=== PATIENT | female | born 1970 | race Caucasian/White ===

== ENCOUNTER → 2017-03-13 | Outpatient (CLI) | payer OTHER ==
[2014-10-20 14:53] VITALS: BP 130/79
[~2017-03-13] MED LIST: CHOL500015 PO; DULO30CA2 PO; ESOM40CA25 PO; IBUP200T77 PO; KETO DHEA; MAGN400C PO; MOXI3DRO2 OU; OLME1TAB PO; PRED5DRO2 OU; PROG100C7 PO; THYR60TA PO; estrogen; pregnenolone
[2017-03-13 09:23] LABS: ALBUMIN 3.4 g/dL (3.4-5.0); CALCIUM 8.6 mg/dL (8.5-10.1); CREATININE 0.9 mg/dL (0.6-1.0); GFR 67.4; POTASSIUM 3.4 mmol/L (3.5-5.1); TOTAL BILIRUBIN 0.4 mg/dL (0.2-1.0); TOTAL PROTEIN 6.9 g/dL (6.4-8.2)
[2017-03-13 09:30] LABS: FREE T4 0.77 ng/dL (0.76-1.46)
[2017-03-13 22:15] LABS: ESTRADIOL LEVEL 37.5 pg/mL (.); PROGESTERONE 1.9 ng/mL (.)
[2017-03-15 18:12] LABS: % FREE TESTOSTERONE 1.09 % (0.50-2.80); TESTOSTERONE FREE 0.04 ng/dL (0.10-0.85); TESTOSTERONE TOTAL 4 ng/dL (8-48)
== END | disposition home or self-care (01) ==
LOC: LAB 07:33
PROVIDERS: ATTEND Nurse Practitioner Women's Health
DX: I10 Essential (primary) hypertension (principal); E03.9 Hypothyroidism, unspecified; Z79.890 Hormone replacement therapy; E78.5 Hyperlipidemia, unspecified
CPT/HCPCS: 36415; 80053; 82670; 83036; 84144; 84402; 84403; 84439; 84443; 84481; 86735; 86762; 86765

== ENCOUNTER → 2017-06-05 | Outpatient (CLI) | payer OTHER ==
[2014-10-20 14:53] VITALS: BP 130/79
[~2017-06-05] MED LIST changes: -CHOL500015 PO; +CHOL500045 PO; -OLME1TAB PO; +OLME1TAB21 PO; +PROG100C15 PO; -PROG100C7 PO
--- NOTE | 2017-06-05 13:19 | RAD ---
DATE: 06/05/2017 EXAM: MAMMO DANILO SCREENING BILATERAL Bilateral digital screening mammography to include digital breast tomosynthesis (3D mammography) HISTORY: Screening study. COMPARISON: 01/24/2016 This study was interpreted with the benefit of Computerized Aided Detection (CAD). FINDINGS: Digital MLO and CC mammograms of both breasts were obtained. Additionally digital breast tomosynthesis (3D mammography) images of both breasts in the MLO and CC projections were performed. Comparison study is dated 01/24/2016. The breast parenchyma is composed of scattered fibroglandular densities which can obscure a lesion on mammography (breast density code B). No spiculated mass is seen. No malignant appearing calcification or area of architectural distortion is noted. Benign-appearing calcifications are seen within both breasts. Digital breast tomosynthesis images demonstrate no spiculated mass or malignant appearing calcification. Since the previous examination there has been no significant interval change. IMPRESSION: BI-RADS Category 1, negative. There is no mammographic evidence of malignancy. Routine yearly screening mammography is recommended for follow-up. BI-RADS CATEGORY: 1 NEGATIVE RECOMMENDED FOLLOW-UP: 12M 12 MONTH FOLLOW-UP PQRS compliance statement: Patient information was entered into a reminder system with a target due date 06/05/2018 for the next mammogram. Mammography is a sensitive method for finding small breast cancers, but it does not detect them all and is not a substitute for careful clinical examination. A negative mammogram does not negate a clinically suspicious finding and should not result in delay in biopsying a clinically suspicious abnormality. "Our facility is accredited by the [employer] Mammography Program."
== END | disposition home or self-care (01) ==
LOC: KCIC MAMMO 07:44
PROVIDERS: ATTEND Physician Assistant Medical
DX: Z12.31 Encounter for screening mammogram for malignant neoplasm of breast (principal)
CPT/HCPCS: 77063; G0202; 77067

== ENCOUNTER 2017-10-02 22:25 | Inpatient (IN) | payer OTHER ==
[~2017-10-02] VITALS: Ht 162.6 cm; Wt 101.9 kg
--- NOTE | 2017-10-02 22:28 | PHYS DOC ---
Past Medical History Past Medical History: GERD, Hypertension, Hypothyroid Past Surgical History: Appendectomy, Cholecystectomy, , Oophorectomy, Tubal ligation, Other Additional Past Surgical Histo: HERNIA REPAIR Alcohol Use: None Drug Use: None Adult General Chief Complaint Chief Complaint: CHEST PAIN HPI HPI Patient is a 47 year old female who presents with with sided chest pain that's under her left breast. She states is a sharp twinging sensation. She denies any shortness of breath associated with this. Nausea or diaphoresis. She also complains of a headache. The pains come and go, nothing she does makes him feel better or worse. She states it started around 9:00 and then her headache started around 9:30. She states she gets frequent stress related headaches. She states it she had a stress test in 2014 that was normal at that time. She does smoke currently she is recommended half a pack per day. She's unsure she has a family history of heart attacks. Review of Systems Review of Systems Constitutional: Denies fever or chills [] Eyes: Denies change in visual acuity, redness, or eye pain [] HENT: Denies nasal congestion or sore throat [] Respiratory: Denies cough or shortness of breath [] Cardiovascular: No additional information not addressed in HPI [] GI: Denies abdominal pain, nausea, vomiting, bloody stools or diarrhea [] : Denies dysuria or hematuria [] Musculoskeletal: Denies back pain or joint pain [] Integument: Denies rash or skin lesions [] Neurologic: Positive for headache,Denies focal weakness or sensory changes [] Endocrine: Denies polyuria or polydipsia [] All other systems were reviewed and found to be within normal limits, except as documented in this note. Current Medications Current Medications Current Medications Medications (Trade) Dose Ordered Sig/Sabrina Start Time Stop Time Status Last Admin Dose Admin Aspirin (Moira Aspirin) 325 mg 1X ONCE 10/03/17 00:30 10/03/17 00:31 10/03/17 00:19 325 MG Nitroglycerin (Nitrostat) 0.4 mg PRN Q5MIN PRN 10/02/17 22:30 10/03/17 22:29 10/02/17 23:01 0.4 MG Sodium Chloride 1,000 ml @ 1,000 mls/hr Q1H 10/02/17 23:00 127/17 23:59 DC 10/02/17 23:25 1,000 MLS/HR Allergies Allergies Allergies Coded Allergies Type Severity Reaction Last Updated Verified sulfamethoxazole Allergy Severe Shortness of Air 04/21/14 Yes trimethoprim Allergy Severe Shortness of Air 04/21/14 Yes propoxyphene Allergy Intermediate 04/21/14 Yes Physical Exam Physical Exam Constitutional: Well developed, well nourished, no acute distress, non-toxic appearance. [] HENT: Normocephalic, atraumatic, bilateral external ears normal, oropharynx moist, no oral exudates, nose normal. [] Eyes: PERRLA, EOMI, conjunctiva normal, no discharge. [] Neck: Normal range of motion, no tenderness, supple, no stridor. [] Cardiovascular:Heart rate regular rhythm, no murmur [] Lungs & Thorax: Bilateral breath sounds clear to auscultation [] Abdomen: Bowel sounds normal, soft, no tenderness, no masses, no pulsatile masses. [] Skin: Warm, dry, no erythema, no rash. [] Back: No tenderness, no CVA tenderness. [] Extremities: No tenderness, no cyanosis, no clubbing, ROM intact, no edema. [] Neurologic: Alert and oriented X 3, normal motor function, normal sensory function, no focal deficits noted. [] Psychologic: Affect normal, judgement normal, mood normal. [] Current Patient Data Vital Signs Vital Signs Date Time Temp Pulse Resp B/P (MAP) Pulse Ox O2 Delivery O2 Flow Rate FiO2 10/02/17 23:01 65 169/77 10/02/17 22:33 98.2 20 100 Room Air 98.2 Lab Values Laboratory Tests Test 10/02/17 23:12 10/02/17 23:20 10/02/17 23:24 White Blood Count 10.5 x10^3/uL (4.0-11.0) Red Blood Count 4.76 x10^6/uL (3.50-5.40) Hemoglobin 14.3 g/dL (12.0-15.5) Hematocrit 42.5 % (36.0-47.0) Mean Corpuscular Volume 89 fL (79-100) Mean Corpuscular Hemoglobin 30 pg (25-35) Mean Corpuscular Hemoglobin Concent 34 g/dL (31-37) Red Cell Distribution Width 13.7 % (11.5-14.5) Platelet Count 305 x10^3/uL (140-400) Neutrophils (%) (Auto) 63 % (31-73) Lymphocytes (%) (Auto) 26 % (24-48) Monocytes (%) (Auto) 7 % (0-9) Eosinophils (%) (Auto) 3 % (0-3) Basophils (%) (Auto) 1 % (0-3) Neutrophils # (Auto) 6.6 x10^3uL (1.8-7.7) Lymphocytes # (Auto) 2.7 x10^3/uL (1.0-4.8) Monocytes # (Auto) 0.7 x10^3/uL (0.0-1.1) Eosinophils # (Auto) 0.3 x10^3/uL (0.0-0.7) Basophils # (Auto) 0.1 x10^3/uL (0.0-0.2) Sodium Level 141 mmol/L (136-145) Potassium Level 3.5 mmol/L (3.5-5.1) Chloride Level 103 mmol/L (98-107) Carbon Dioxide Level 29 mmol/L (21-32) Anion Gap 9 (6-14) Blood Urea Nitrogen 10 mg/dL (7-20) Creatinine 1.0 mg/dL (0.6-1.0) Estimated GFR (Cockcroft-Gault) 59.4 Glucose Level 111 mg/dL (70-99) H Calcium Level 9.0 mg/dL (8.5-10.1) Total Bilirubin 0.2 mg/dL (0.2-1.0) Direct Bilirubin 0.1 mg/dL (0.0-0.2) Aspartate Amino Transferase (AST) 17 U/L (15-37) Alanine Aminotransferase (ALT) 27 U/L (14-59) Alkaline Phosphatase 87 U/L (46-116) Creatine Kinase 88 U/L (26-192) Creatine Kinase MB (Mass) < 0.5 ng/mL (0.0-3.6) Creatine Kinase MB Relative Index % (0-4) Troponin I Quantitative < 0.017 ng/mL (0.000-0.055) [id number]-[id number]-Type Natriuretic Peptide 35 pg/mL (0-124) Total Protein 7.0 g/dL (6.4-8.2) Albumin 3.6 g/dL (3.4-5.0) Lipase 127 U/L (73-393) Serum Test, Qualitative Negative (NEG) Urine Collection Type Unknown Urine Color Yellow Urine Clarity Clear Urine pH 7.0 Urine Specific [place] <=1.005 Urine Protein Negative mg/dL (NEG-TRACE) Urine Glucose (UA) Negative mg/dL (NEG) Urine Ketones (Stick) Negative mg/dL (NEG) Urine Blood Negative (NEG) Urine Nitrite Negative (NEG) Urine Bilirubin Negative (NEG) Urine Urobilinogen Dipstick 0.2 mg/dL (0.2 mg/dL) Urine Leukocyte Esterase Negative (NEG) Urine RBC 0 /HPF (0-2) Urine WBC 0 /HPF (0-4) Urine Squamous Epithelial Cells Few /LPF Urine Bacteria 0 /HPF (0-FEW) Urine Mucus Slight /LPF Urine Opiates Screen Neg (NEG) Urine Methadone Screen Neg (NEG) Urine Barbiturates Neg (NEG) Urine Phencyclidine Screen Neg (NEG) Urine Amphetamine/Methamphetamine Neg (NEG) Urine Benzodiazepines Screen Neg (NEG) Urine Cocaine Screen Neg (NEG) Urine Cannabinoids Screen Neg (NEG) Urine Ethyl Alcohol Neg (NEG) POC Urine HCG, Qualitative Hcg negative (Negative) Laboratory Tests 10/02/17 23:12 Laboratory Tests 10/02/17 23:12 EKG EKG EKG shows sinus rhythm with rate of [address] elevations, T-wave inversions noted in leads 3, V1 and V2 V3, normal axis, QTC 415 ms, as interpreted by me. Radiology/Procedures Radiology/Procedures View chest x-ray did not show any focal consolidations, bony abnormality's, pneumothorax, as interpreted by me. Impressions: Chest pain Hypertension Tobacco abuse Course & Med Decision Making Course & Med Decision Making Pertinent Labs and Imaging studies reviewed. (See chart for details) EKG shows T-wave inversions in lead 3 which looks similar to her previous one that was done on 05/20 2014. Her x-ray does not show any acute abnormalities and her first troponin is negative. She stated that when she took nitroglycerin made her chest feel tighter. We'll give her dose aspirin and admit for chest pain rule out. Patient's in stable condition at this time going to hospitalist. Dragon Disclaimer Dragon Disclaimer This electronic medical record was generated, in whole or in part, using a voice recognition dictation system. Departure Departure Impression: Primary Impression: Chest pain Disposition: ADMITTED INPATIENT Admitting Physician: Other Condition: STABLE Referrals: RAUL BERGERON (PCP) KALLIE TANNER MD Oct 02, 2017 22:28
[2017-10-02] MEDS ORDERED: NITROGLYCERIN SUBLINGUAL 0.4 MG BOTTLE OF 25. SL PRN (22:30)
[2017-10-02] MEDS ORDERED: IV NORMAL SALINE 1000ML BAG 1,000 ML IV SCH (23:00)
[2017-10-02 23:20] LABS: BASO # 0.1 x10^3/uL (0.0-0.2); BASO % 1 % (0-3); EOS % 3 % (0-3); HEMATOCRIT 42.5 % (36.0-47.0); HEMOGLOBIN 14.3 g/dL (12.0-15.5); LYMPH # 2.7 x10^3/uL (1.0-4.8); LYMPH % 26 % (24-48); MEAN CORPUSCULAR HEMOGLOBIN 30 pg (25-35); MEAN CORPUSCULAR HGB CONC 34 g/dL (31-37); MEAN CORPUSCULAR VOLUME 89 fL (79-100); MONO % 7 % (0-9); NEUT % 63 % (31-73); PLATELET COUNT 305 x10^3/uL (140-400); RED BLOOD COUNT 4.76 x10^6/uL (3.50-5.40); RED CELL DISTRIBUTION WIDTH 13.7 % (11.5-14.5); WHITE BLOOD COUNT 10.5 x10^3/uL (4.0-11.0)
[2017-10-02 23:30] LABS: BILIRUBIN,URINE NEGATIVE (NEG); GLUCOSE,URINE NEGATIVE (NEG); NITRITE,URINE NEGATIVE (NEG); PROTEIN,URINE NEGATIVE (NEG-TRACE); UROBILINOGEN,URINE 0.2 mg/dL (0.2 mg/dL)
[2017-10-02 23:30] LABS: NEG OBC SER NEG; POS OBC SER POS
[2017-10-02 23:31] LABS: GFR 59.4; POTASSIUM 3.5 mmol/L (3.5-5.1)
[2017-10-02 23:33] LABS: BACTERIA,URINE 0 /HPF (0-FEW); RBC,URINE 0 /HPF (0-2); SQUAMOUS EPITHELIAL CELL,UR FEW /LPF; WBC,URINE 0 /HPF (0-4)
[2017-10-02 23:37] LABS: ALBUMIN 3.6 g/dL (3.4-5.0); DIRECT BILIRUBIN 0.1 mg/dL (0.0-0.2); TOTAL BILIRUBIN 0.2 mg/dL (0.2-1.0)
[2017-10-02 23:44] LABS: BARBITURATES NEG (NEG); BENZODIAZEPINES NEG (NEG); CANNABINOIDS NEG (NEG); COCAINE NEG (NEG); METHADONE NEG (NEG); OPIATES NEG (NEG); PHENCYCLIDINE NEG (NEG)
[2017-10-02 23:47] LABS: CKMB MASS < 0.5 ng/mL (0.0-3.6); CREATINE KINASE 88 U/L (26-192)
[2017-10-03 00:15] VITALS: BP 112/63
[2017-10-03] MEDS ORDERED: ASPIRIN 325 MG TABLET PO ONE (00:30)
[2017-10-03] MEDS ORDERED: ONDANSETRON PF 4 MG/2 ML VIAL. IV PRN (00:30)
[2017-10-03 03:00] VITALS: BP 117/67
--- NOTE | 2017-10-03 06:19 | EKG ---
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
[2017-10-03 07:00] VITALS: BP 108/53
--- NOTE | 2017-10-03 07:13 | RAD ---
Portable chest, 10/02/2017: History: Chest pain Comparison is made to a study from 10/20/2015. The heart size and pulmonary vascularity are normal. The lungs are clear. There is no evidence of pleural fluid. IMPRESSION: No acute cardiopulmonary abnormality is detected.
[2017-10-03 10:57] VITALS: BP 122/67
--- NOTE | 2017-10-03 11:29 | PDOC2 ---
PATRICIA BRUCE AUDIOMETRIC TECHNICIAN 10/03/17 1129: CARDIAC CONSULT DATE OF CONSULT Date of Consult DATE: 10/03/17 TIME: 11:19 REASON FOR CONSULT Reason for Consult: CP REFERRING PHYSICIAN Referring Physician: bethany SOURCE Source: Chart review, Patient HISTORY OF PRESENT ILLNESS HISTORY OF PRESENT ILLNESS This is a pleasant 47 yo female admitted for complains of chest pain. Reports that this started happening in the last few days describing it as stabbing sharp pain that is non radiating. She has not been having any CARLISLE, nor exertional CP. No anusea, diaphoresis. Denies any falls or any injury however she has been having frequent nonproductive cough at night. She does have GERD which she takes nexium for and there was a suspicion of barrets about 4 yrs ago via EGD but the bx came back negative. Reports no palpitations. she was having BERUMEN last night and noted that her SBP was in the 150s. Otherwise she does not take routine NSAIDs and has been compliant with her medications. No prior CAD, VTE. PAST MEDICAL HISTORY Past Medical History Cardiovascular: HTN, Hyperlipidemia Pulmonary: Other Psych: Depression Past Surgical History Past Surgical History: Appendectomy, Cholecystectomy, Tubal Ligation, Hysterectomy, Other Family History Family History: Other Social History Social History Patient smokes less than one pack of cigarettes daily and denied any alcohol or drug abuse Cardiovascular: HTN, Hyperlipidemia GI: GERD Hepatobiliary: Cholelithiasis Psych: Depression Rheumatologic: Fibromyalgia Infectious disease: No pertinent hx ENT: No pertinent hx Renal/: No pertinent hx Endocrine: Hypothyroidism Dermatology: No pertinent hx PAST SURGICAL HISTORY Past Surgical History: Cholecystectomy, , Hernia Repair, Hysterectomy FAMILY HISTORY Family History: Hypertension SOCIAL HISTORY Smoke: <1 pack per day ALCOHOL: occassional Drugs: None Lives: with Family CURRENT MEDICATIONS CURRENT MEDICATIONS Current Medications Medications (Trade) Dose Ordered Sig/Sabrina Route PRN Reason Start Time Stop Time Status Last Admin Dose Admin Nitroglycerin (Nitrostat) 0.4 mg PRN Q5MIN PRN SL CP RATING > 10 10/02/17 22:30 10/03/17 22:29 10/02/17 23:01 Sodium Chloride 1,000 ml @ 1,000 mls/hr Q1H IV 10/02/17 23:00 10/02/17 23:59 DC 10/02/17 23:25 Aspirin (Moira Aspirin) 325 mg 1X ONCE PO 10/03/17 00:30 10/03/17 00:31 DC 10/03/17 00:19 ALLERGIES ALLERGIES: Coded Allergies: sulfamethoxazole (Verified Allergy, Severe, Shortness of Air, 04/21/14) CHEST PAIN trimethoprim (Verified Allergy, Severe, Shortness of Air, 04/21/14) CHEST PAIN propoxyphene (Verified Allergy, Intermediate, 04/21/14) MENTAL CONFUSION ROS Review of System 14 point ROS evaluated with pertinent positives noted per HPI PHYSICAL EXAM General: Alert, Oriented X3, Cooperative, No acute distress HEENT: Atraumatic, Mucous membr. moist/pink Lungs: Clear to auscultation, Normal air movement Heart: Regular rate (SR), Normal S1, Normal S2, No murmurs Abdomen: Soft, No tenderness, Other (obese) Extremities: No cyanosis, No edema Skin: No breakdown, No significant lesion Neuro: Normal speech, Sensation intact Psych/Mental Status: Mental status NL, Mood NL MUSCULOSKELETAL: Osteoarthritic changes both hands VITALS VITALS Vital Signs Date Time Temp Pulse Resp B/P (MAP) Pulse Ox O2 Delivery O2 Flow Rate FiO2 10/03/17 10:57 98.0 64 16 122/67 (85) 100 Room Air 98.0 LABS Lab: Laboratory Tests Test 10/02/17 23:12 10/02/17 23:20 10/02/17 23:24 10/03/17 06:30 White Blood Count 10.5 x10^3/uL (4.0-11.0) Red Blood Count 4.76 x10^6/uL (3.50-5.40) Hemoglobin 14.3 g/dL (12.0-15.5) Hematocrit 42.5 % (36.0-47.0) Mean Corpuscular Volume 89 fL (79-100) Mean Corpuscular Hemoglobin 30 pg (25-35) Mean Corpuscular Hemoglobin Concent 34 g/dL (31-37) Red Cell Distribution Width 13.7 % (11.5-14.5) Platelet Count 305 x10^3/uL (140-400) Neutrophils (%) (Auto) 63 % (31-73) Lymphocytes (%) (Auto) 26 % (24-48) Monocytes (%) (Auto) 7 % (0-9) Eosinophils (%) (Auto) 3 % (0-3) Basophils (%) (Auto) 1 % (0-3) Neutrophils # (Auto) 6.6 x10^3uL (1.8-7.7) Lymphocytes # (Auto) 2.7 x10^3/uL (1.0-4.8) Monocytes # (Auto) 0.7 x10^3/uL (0.0-1.1) Eosinophils # (Auto) 0.3 x10^3/uL (0.0-0.7) Basophils # (Auto) 0.1 x10^3/uL (0.0-0.2) Sodium Level 141 mmol/L (136-145) Potassium Level 3.5 mmol/L (3.5-5.1) Chloride Level 103 mmol/L (98-107) Carbon Dioxide Level 29 mmol/L (21-32) Anion Gap 9 (6-14) Blood Urea Nitrogen 10 mg/dL (7-20) Creatinine 1.0 mg/dL (0.6-1.0) Estimated GFR (Cockcroft-Gault) 59.4 Glucose Level 111 mg/dL (70-99) Calcium Level 9.0 mg/dL (8.5-10.1) Total Bilirubin 0.2 mg/dL (0.2-1.0) Direct Bilirubin 0.1 mg/dL (0.0-0.2) Aspartate Amino Transf (AST/SGOT) 17 U/L (15-37) Alanine Aminotransferase (ALT/SGPT) 27 U/L (14-59) Alkaline Phosphatase 87 U/L (46-116) Creatine Kinase 88 U/L (26-192) Creatine Kinase MB (Mass) < 0.5 ng/mL (0.0-3.6) Creatine Kinase MB Relative Index % (0-4) Troponin I Quantitative < 0.017 ng/mL (0.000-0.055) < 0.017 ng/mL (0.000-0.055) YY-Jhl-P-Type Natriuretic Peptide 35 pg/mL (0-124) Total Protein 7.0 g/dL (6.4-8.2) Albumin 3.6 g/dL (3.4-5.0) Lipase 127 U/L (73-393) Serum Test, Qualitative Negative (NEG) Urine Collection Type Unknown Urine Color Yellow Urine Clarity Clear Urine pH 7.0 Urine Specific [place] <=1.005 Urine Protein Negative mg/dL (NEG-TRACE) Urine Glucose (UA) Negative mg/dL (NEG) Urine Ketones (Stick) Negative mg/dL (NEG) Urine Blood Negative (NEG) Urine Nitrite Negative (NEG) Urine Bilirubin Negative (NEG) Urine Urobilinogen Dipstick 0.2 mg/dL (0.2 mg/dL) Urine Leukocyte Esterase Negative (NEG) Urine RBC 0 /HPF (0-2) Urine WBC 0 /HPF (0-4) Urine Squamous Epithelial Cells Few /LPF Urine Bacteria 0 /HPF (0-FEW) Urine Mucus Slight /LPF Urine Opiates Screen Neg (NEG) Urine Methadone Screen Neg (NEG) Urine Barbiturates Neg (NEG) Urine Phencyclidine Screen Neg (NEG) Urine Amphetamine/Methamphetamine Neg (NEG) Urine Benzodiazepines Screen Neg (NEG) Urine Cocaine Screen Neg (NEG) Urine Cannabinoids Screen Neg (NEG) Urine Ethyl Alcohol Neg (NEG) Bedside Urine HCG, Qualitative Hcg negative (Negative) ECHOCARDIOGRAM ECHOCARDIOGRAM <Conclusion> Treadmill exercise stress echocardiogram did not show any evidence of ischemia or infarct Normal left ventricular systolic function with ejection fraction estimated at 60 % Compared to age and gender matched controls, patient had excellent activity tolerance Low risk for cardiovascular events DATE: 11/10/14 1017 ASSESSMENT/PLAN ASSESSMENT/PLAN 1. Atypical chest pain; Noncardiac, likely GI with GERD exacerbation high on the differential 2. HTN; controlled 3. HLP: takes fish oil 4. Hypothyroidism 5. Fibromyalgia 6. Tobaccoism 7. GERD 8. Obesity 9. HRT with hypogonadism recommendations 1. Lipid panel 2. TTE per PCP, if unremarkable then may DC per cardiac p[erspective 3. Continue with secondary prevention , lifestyle modification 4. Will need GI eval maybe outpt. Problems: EDI POE MD 10/03/17 1847: CARDIAC CONSULT ALLERGIES ALLERGIES: Coded Allergies: sulfamethoxazole (Verified Allergy, Severe, Shortness of Air, 04/21/14) CHEST PAIN trimethoprim (Verified Allergy, Severe, Shortness of Air, 04/21/14) CHEST PAIN propoxyphene (Verified Allergy, Intermediate, 04/21/14) MENTAL CONFUSION PATRICIA BRUCE APRN Oct 03, 2017 11:29 EDI POE MD Oct 03, 2017 18:47
--- NOTE | 2017-10-03 18:22 | CARD ---
APPROVED REPORT EXAM: Two-dimensional and M-mode echocardiogram with Doppler and color Doppler. Other Information Quality : Good INDICATION Chest Pain 2D DIMENSIONS Left Atrium(2D)4.1 (1.6-4.0cm)IVSd1.1 (0.7-1.1cm) Aortic Root(2D)2.6 (2.0-3.7cm)LVDd4.9 (3.9-5.9cm) LVOT Diameter2.0 (1.8-2.4cm)PWd1.1 (0.7-1.1cm) LVDs3.3 (2.5-4.0cm)FS (%) 32.5 % SV69.4 mlLVEF(%)60.6 (>50%) Aortic Valve AoV Peak Horace.155.8cm/sAoV VTI32.6cm AO Peak GR.9.7mmHgLVOT Peak Horace.111.2cm/s AO Mean GR.5mmHgAVA (VMAX)2.24cm2 CHACE (VTI)2.70cm2 Mitral Valve MV E Trnltfep666.8cm/sMV DECEL ECHX558zu MV A Vwjfqcqo44.2cm/sE/A Ratio1.4 Tricuspid Valve TR P. Qamnktcq750xd/sRAP [id number] TR Peak Gr.83tdKbJJDH44aiDz LEFT VENTRICLE The left ventricle is normal size. There is mild concentric left ventricular hypertrophy. Left ventri lisa systolic function is normal. The Ejection Fraction is 55-60%. There is normal LV segmental wall m otion. The left ventricular diastolic function and filling is normal for age. RIGHT VENTRICLE The right ventricle is normal size. The right ventricular systolic function is normal. ATRIA The left atrium size is normal. The right atrium size is normal. The interatrial septum is intact wit h no evidence for an atrial septal defect or patent foramen ovale as noted on 2-D or Doppler imaging. AORTIC VALVE The aortic valve is normal in structure and function. Doppler and Color Flow revealed no significant aortic regurgitation. There is no significant aortic valvular stenosis. MITRAL VALVE The mitral valve is normal in structure and function. There is no evidence of mitral valve prolapse. There is no mitral valve stenosis. Doppler and Color Flow revealed no mitral valve regurgitation note d. TRICUSPID VALVE The tricuspid valve is normal in structure and function. Doppler and Color Flow revealed no tricuspid valve regurgitation noted. There is no pulmonary hypertension. The PA pressure was estimated at 24 m mHg. There is no tricuspid valve prolapse or vegetation. There is no tricuspid valve stenosis. PULMONIC VALVE Doppler and Color Flow revealed trace pulmonic valvular regurgitation. There is no pulmonic valvular stenosis. GREAT VESSELS The aortic root is normal in size. The ascending aorta is normal in size. The IVC is normal in size a nd collapses >50% with inspiration. PERICARDIAL EFFUSION There is no pleural effusion. There is no evidence of significant pericardial effusion. Critical Notification Critical Value: No <Conclusion> Left ventricle systolic function is normal. The Ejection Fraction is 55-60%. There is normal LV segmental wall motion.
--- NOTE | 2017-10-05 19:37 | SSS ---
ADMIT DATE: 10/03/2017 CHIEF COMPLAINT: Chest pain. HISTORY OF PRESENT ILLNESS: The patient is a 47-year-old smoker with history of hypertension and hyperlipidemia who presented to the Emergency Room with chest pain in her left chest that had been going on for several days. She explains that she experiences the pain all of a sudden, sharp stabbing underneath her left breast. It seems to be resolving on its own within a few minutes. However, this has been recurrent over the past few days. She denies any radiation, any nausea, diaphoresis or dizziness. She denies any shortness of breath. However, she has had frequent nonproductive cough, especially at night. She does have a history of gastroesophageal reflux disease as well for which she takes proton pump inhibitors. PAST MEDICAL HISTORY: Hypertension, hyperlipidemia, gastroesophageal reflux disease, depression. PAST SURGICAL HISTORY: Status post tubal ligation, hysterectomy, appendectomy, cholecystectomy. FAMILY HISTORY: Positive for hypertension. SOCIAL HISTORY: Continues to smoke about half a pack a day, drinks alcohol occasionally. Denies any drugs. Currently lives with family. ALLERGIES: SULFA, PROPOXYPHENE. MEDICATIONS: MAR reconciled with home medications. REVIEW OF SYSTEMS: Positive as per HPI. Rest of organ systems were reviewed with her and found negative. PHYSICAL EXAMINATION: VITAL SIGNS: Show a blood pressure of 122/67, heart rate of 64, respiratory rate at 16. She is afebrile. GENERAL: This is a morbidly obese woman, alert and oriented, in no acute distress, very pleasant. HEENT: Shows no scleral icterus. Oral mucosa is pink and moist. NECK: Supple, without any lymphadenopathy. LUNGS: Clear to auscultation bilaterally. HEART: Regular rate and rhythm without any appreciable murmur. EXTREMITIES: Show no edema. SKIN: Warm, soft and dry. NEUROLOGIC: She appears grossly intact. LABORATORY DATA: CBC with a WBC of 10.5, hemoglobin 14.3, platelets of 305. Chemistries with a BUN and creatinine of 10 and 1.0, normal electrolytes, normal LFTs. Initial troponin negative x 2. RADIOGRAPHIC STUDIES: Chest x-ray without acute cardiopulmonary abnormality. HOSPITAL COURSE: The patient is a 47-year-old obese woman with cardiac risk factors, but atypical chest pain. She was ruled out for acute coronary syndrome by serial enzymes. She did have an echocardiogram in October of this year, a second one was obtained during her hospitalization showing normal left ventricular segmental wall motion and normal ejection fraction. Her pain as suspected from the onset was attributed to gastroesophageal reflux disease. She was given proton pump inhibitor and advised to continue taking that. Dietary precautions were discussed with her as well. DISCHARGE DIAGNOSES: Chest pain, gastroesophageal reflux disease. DISCHARGE DISPOSITION: To home. DISCHARGE CONDITION: Improved. DISCHARGE MEDICATIONS: Please refer to MAR. DISCHARGE INSTRUCTIONS: The patient will follow up with Chuyita Diane. MERLIN LEMONS MD DR: UR/nts JOB#: [id number] / [id number] FELIPE
== END 2017-10-03 17:11 | disposition home or self-care (01) | DRG 392 ==
LOC: ER 22:25 → 6 SOUTH 10-03 00:15
PROVIDERS: ADMIT Family Medicine; ATTEND Family Medicine
DX: K21.9 Gastro-esophageal reflux disease without esophagitis (principal); E03.9 Hypothyroidism, unspecified; E66.9 Obesity, unspecified; E78.5 Hyperlipidemia, unspecified; F17.210 Nicotine dependence, cigarettes, uncomplicated; F32.9 Major depressive disorder, single episode, unspecified; I10 Essential (primary) hypertension; K80.20 Calculus of gallbladder without cholecystitis without obstruction; M79.7 Fibromyalgia; Z82.49 Family history of ischemic heart disease and other diseases of the circulatory system; Z90.49 Acquired absence of other specified parts of digestive tract; Z90.722 Acquired absence of ovaries, bilateral; Z98.51 Tubal ligation status; Z90.710 Acquired absence of both cervix and uterus; Z88.1 Allergy status to other antibiotic agents; Z88.2 Allergy status to sulfonamides; Z68.38 Body mass index [BMI] 38.0-38.9, adult; Z88.8 Allergy status to other drugs, medicaments and biological substances
CPT/HCPCS: 36415; 71010; 80048; 80076; 80307; 81001; 81025; 82553; 83690; 83880; 84484; 84703; 85025; 93005; 93306; J7030; G0479

== ENCOUNTER → 2017-10-24 | Day surgery (SDC) | payer OTHER ==
[~2017-10-24] MED LIST changes: -CHOL500045 PO; -DULO30CA2 PO; -ESOM40CA25 PO; +HYDROmorphone 2 MG/ML VIAL IV; -IBUP200T77 PO; -KETO DHEA; +LIDOCAINE 1% PF 2 ML VIAL. ID; +LIDOCAINE 2% PF Vial for OR 5 ML VIAL.; -MAGN400C PO; +MORPHINE SULFATE 2 MG/ML DISP.SYRIN. IV; -MOXI3DRO2 OU; -OLME1TAB21 PO; +ONDANSETRON PF 4 MG/2 ML VIAL. IV; -PRED5DRO2 OU; +PROCHLORPERAZINE 10 MG/2 ML VIAL. IV; -PROG100C15 PO; +PROPOFOL 20 ML IV; -THYR60TA PO; -estrogen; +fentaNYL PF VIAL 100 MCG/2 ML VIAL IV; -pregnenolone
[2017-10-24] MEDS: IV RINGERS,LACTATED 1000ML 1,000 ML IV (06:54)
== END | disposition home or self-care (01) ==
LOC: ENDOS 06:34
DX: K21.0 Gastro-esophageal reflux disease with esophagitis (principal); K29.50 Unspecified chronic gastritis without bleeding; I10 Essential (primary) hypertension; E03.9 Hypothyroidism, unspecified; Z88.2 Allergy status to sulfonamides; Z88.8 Allergy status to other drugs, medicaments and biological substances; Z79.899 Other long term (current) drug therapy; Z72.89 Other problems related to lifestyle; F17.200 Nicotine dependence, unspecified, uncomplicated; Z90.49 Acquired absence of other specified parts of digestive tract; Z90.710 Acquired absence of both cervix and uterus
CPT/HCPCS: 43239; 88305; J2704

== ENCOUNTER → 2018-07-06 | Outpatient (CLI) | payer OTHER ==
[2017-10-24 08:30] VITALS: BP 105/57
[~2018-07-06] MED LIST changes: +CHOL500045 PO; +CYAN250012 PO; +DULO30CA2 PO; +ESOM40CA PO; +ESOM40CA25 PO; -HYDROmorphone 2 MG/ML VIAL IV; +IBUP200T77 PO; +KETO DHEA; -LIDOCAINE 1% PF 2 ML VIAL. ID; -LIDOCAINE 2% PF Vial for OR 5 ML VIAL.; +MAGN400C PO; -MORPHINE SULFATE 2 MG/ML DISP.SYRIN. IV; +MOXI3DRO2 OU; +OLME1TAB21 PO; -ONDANSETRON PF 4 MG/2 ML VIAL. IV; +PRED5DRO2 OU; -PROCHLORPERAZINE 10 MG/2 ML VIAL. IV; +PROG100C15 PO; -PROPOFOL 20 ML IV; +THYR60TA PO; +estrogen; -fentaNYL PF VIAL 100 MCG/2 ML VIAL IV; +pregnenolone
--- NOTE | 2018-07-06 12:33 | RAD ---
DATE: 07/06/2018 EXAM: MAMMO DANILO SCREENING BILATERAL HISTORY: Routine screening COMPARISON: 06/05/2017 This study was interpreted with the benefit of Computerized Aided Detection (CAD). Breast Density: SCATTERED The breast parenchyma shows scattered fibroglandular densities. Breast parenchyma level B. FINDINGS: 2-D and 3-D tomosynthesis imaging was performed in CC and MLO projections. There is a 5 mm retroareolar nodule in the right breast at the 12:00 location as best seen on CC danilo image #48. This nodule appears to have increased in size since the previous study. There is a 6-7 mm nodule in the upper inner quadrant of the left breast best seen on CC danilo image #58 and left oblique danilo image #80 which appears to have increased slightly in size. There is a 5 x 9 mm nodule in the lateral aspect of the left breast at the 2-3 o'clock location as seen on axial tomosynthesis images #39 which appears to have increased slightly in size. Benign-appearing lymph node type densities are present in both axillary regions. No suspicious microcalcifications are evident. IMPRESSION: Small bilateral breast nodules as described above. Sonographic evaluation is suggested. BI-RADS CATEGORY: 0 INCOMPLETE: NEEDS ADDITIONAL IMAGING EVALUATION AND/OR PRIOR MAMMOGRAMS FOR COMPARISON. RECOMMENDED FOLLOW-UP: ADD ADDITIONAL IMAGING PQRS compliance statement: Patient information was entered into a reminder system with a target due date for the next mammogram. Mammography is a sensitive method for finding small breast cancers, but it does not detect them all and is not a substitute for careful clinical examination. A negative mammogram does not negate a clinically suspicious finding and should not result in delay in biopsying a clinically suspicious abnormality. "Our facility is accredited by the [employer] Mammography [employer]."
== END | disposition home or self-care (01) ==
LOC: MAMMO 08:30
PROVIDERS: ATTEND Physician Assistant Medical
DX: Z12.31 Encounter for screening mammogram for malignant neoplasm of breast (principal); E03.9 Hypothyroidism, unspecified; G43.909 Migraine, unspecified, not intractable, without status migrainosus; K21.9 Gastro-esophageal reflux disease without esophagitis; Z90.722 Acquired absence of ovaries, bilateral; Z90.49 Acquired absence of other specified parts of digestive tract; Z90.710 Acquired absence of both cervix and uterus; Z88.2 Allergy status to sulfonamides; Z88.1 Allergy status to other antibiotic agents; Z88.8 Allergy status to other drugs, medicaments and biological substances; Z82.49 Family history of ischemic heart disease and other diseases of the circulatory system
CPT/HCPCS: 77063; 77067

== ENCOUNTER → 2018-07-08 | Outpatient (CLI) | payer OTHER ==
[2017-10-24 08:30] VITALS: BP 105/57
--- NOTE | 2018-07-08 16:22 | RAD ---
Bilateral breast ultrasound, 07/08/2018: History: Abnormal screening mammogram A targeted ultrasound exam of both breasts was performed. On the right, at the 12:00 location approximately 2 cm from the nipple there is a 7 x 4 x 2 mm hypoechoic nodule. Some of its margins are slightly angulated. It is taller than wide. There is no definite posterior acoustic enhancement or shadowing. No internal color flow is seen. This appears to correspond to the nodule seen on the mammograms. The sonographic findings are mildly suspicious. On the left, at the 2:00 location approximately 7 cm from the nipple there is a elongated 3 x 7 x 4 mm hypoechoic structure with smooth margins. There are faint low level internal echoes. This is wider than tall. It is probably a complicated cyst. It appears to correspond to the lateral nodule seen on the mammograms. Also on the left at the 10:30 location approximately 6 cm in the nipple 8 x 4 x 2 mm there is a complex nodule. It contains small cystic appearing components as well as echogenic components. It is widened than tall. Its margins are fairly smooth. This is probably a fibrocystic lesion such as a cyst cluster or complicated cyst. This appears to correspond in location to the medial left breast nodule described on the mammograms. More inferiorly in the medial left breast at the 9:30 location there is a 2 x 4 x 3 mm hypoechoic structure. It is triangular in shape. Its margins are relatively smooth. No definite posterior acoustic enhancement or shadowing is seen. This is probably a complicated cyst. IMPRESSION: 1. Mildly suspicious hypoechoic nodule at the 12:00 location the right breast. Ultrasound-guided biopsy is suggested for further evaluation. 2. Probably benign left breast nodules as described above. Sonographic surveillance beginning in 4-6 months is suggested. Note: The findings were discussed with the patient the time of the exam and she understands the recommendation for right breast biopsy. BI-RADS 4-suspicious abnormality.
== END | disposition home or self-care (01) ==
LOC: US 15:06
PROVIDERS: ATTEND Physician Assistant Medical
DX: R92.8 Other abnormal and inconclusive findings on diagnostic imaging of breast (principal); M16.11 Unilateral primary osteoarthritis, right hip; E03.9 Hypothyroidism, unspecified; G43.909 Migraine, unspecified, not intractable, without status migrainosus; K21.9 Gastro-esophageal reflux disease without esophagitis; Z88.2 Allergy status to sulfonamides; Z88.1 Allergy status to other antibiotic agents; Z88.8 Allergy status to other drugs, medicaments and biological substances; Z90.722 Acquired absence of ovaries, bilateral; Z90.49 Acquired absence of other specified parts of digestive tract; Z90.710 Acquired absence of both cervix and uterus; Z82.49 Family history of ischemic heart disease and other diseases of the circulatory system
CPT/HCPCS: 76641

== ENCOUNTER → 2018-07-15 | Outpatient (CLI) | payer OTHER ==
[2017-10-24 08:30] VITALS: BP 105/57
[~2018-07-15] MED LIST changes: +LIDOCAINE 1% Multi-Dose 50 ML VIAL. INJ ONE; +LIDOCAINE 2%/EPI 1:100,000 20 ML VIAL. IJ ONE
--- NOTE | 2018-07-17 14:08 | PATHOLOGY ---
[facility] Accession Number: [id number] . 01 Material submitted: . RIGHT BREAST . 01 Clinical history: . Right breast mass . 02 Diagnosis: Breast tissue, right breast mass needle biopsies: - Fibrocystic changes with the following components: - Stromal fibrosis. - Ductectasia. - Cystic change. - Focally papillary apocrine metaplasia. (JPM:[facility] 07/16/2018) QTP/07/17/2018 . 02 Electronically signed: . Cezar Bartholomew MD, Pathologist NPI- [id number] . 01 Gross description: . The specimen is received in formalin, labeled "Courtney Clements, right breast", are multiple fibro-fatty cores measuring 1.7 x 1.2 x 0.4 cm in aggregate. The specimen is entirely submitted in A1-A3. Specimen excised at: 1242 on 07/15/18, placed in formalin at: 1245 on 07/15/18, formalin exposure: 10 hours and 15 minutes (SWS; 07/15/2018) SHS/SHS . 02 Pathologist provided ICD-10: N60.11, N60.31, N60.41, N60.81 . 02 CPT . 126827 Specimen Comment: A courtesy copy of this report has been sent to Specimen Comment: [phone], , . Specimen Comment: Report sent to ,DR BERGERON / DR ALLEN Performed at: 01 [facility] [address], [place], [place] [id number] MD Roman Gilliland MD Phone: [phone] Performed at: 02 [facility] [address], [place] [id number] MD Cezar Bartholomew MD Phone: [phone]
--- NOTE | 2018-07-20 08:47 | RAD ---
Ultrasound-guided right breast biopsy, 07/15/2018: History: Suspicious right breast nodule Previous studies demonstrated a suspicious nodule at the 12:00 location. Under local anesthesia, aseptic conditions and sonographic guidance the [facility] biopsy instrument was passed into the edge of this nodule via a medial approach. Multiple 12-gauge vacuum-assisted core samples were obtained. A biopsy marker was then deposited at the biopsy site. The biopsy instrument was then removed and hemostasis obtained. Two-view postprocedural mammograms were then obtained to document position of the biopsy marker. There is a small postbiopsy hematoma at the biopsy site along the anterior aspect of the biopsy marker. The biopsy site corresponds in location to the 12:00 nodule noted on the 07/06/2018 mammograms. The patient tolerated the procedure well and left the department in good condition. The subsequent pathology report indicated the presence of fibrocystic change with apocrine metaplasia. This is considered to be a concordant finding.
== END | disposition home or self-care (01) ==
LOC: US 12:01
PROVIDERS: ATTEND Surgery
DX: N60.31 Fibrosclerosis of right breast (principal); N60.41 Mammary duct ectasia of right breast; N60.81 Other benign mammary dysplasias of right breast; Z88.1 Allergy status to other antibiotic agents; Z88.8 Allergy status to other drugs, medicaments and biological substances
CPT/HCPCS: 19083; 77065; 88305; C1713; 19081; 76942

== ENCOUNTER → 2018-09-29 | Outpatient (CLI) | payer OTHER ==
[2017-10-24 08:30] VITALS: BP 105/57
[~2018-09-29] MED LIST changes: -LIDOCAINE 1% Multi-Dose 50 ML VIAL. INJ ONE; -LIDOCAINE 2%/EPI 1:100,000 20 ML VIAL. IJ ONE
[2018-09-29 08:27] LABS: BASO # 0.1 x10^3/uL (0.0-0.2); BASO % 1 % (0-3); EOS # 0.2 x10^3/uL (0.0-0.7); EOS % 2 % (0-3); HEMATOCRIT 42.9 % (36.0-47.0); HEMOGLOBIN 14.8 g/dL (12.0-15.5); LYMPH # 1.8 x10^3/uL (1.0-4.8); LYMPH % 22 % (24-48); MEAN CORPUSCULAR HEMOGLOBIN 30 pg (25-35); MEAN CORPUSCULAR HGB CONC 35 g/dL (31-37); MEAN CORPUSCULAR VOLUME 87 fL (79-100); MONO # 0.6 x10^3/uL (0.0-1.1); MONO % 7 % (0-9); NEUT # 5.8 x10^3uL (1.8-7.7); NEUT % 69 % (31-73); PLATELET COUNT 338 x10^3/uL (140-400); RED BLOOD COUNT 4.95 x10^6/uL (3.50-5.40); RED CELL DISTRIBUTION WIDTH 13.9 % (11.5-14.5); WHITE BLOOD COUNT 8.5 x10^3/uL (4.0-11.0)
[2018-09-29 14:30] LABS: ESTRADIOL LEVEL 46.2 pg/mL (.); PROGESTERONE 2.3 ng/mL (.)
== END | disposition home or self-care (01) ==
LOC: LAB 07:31
PROVIDERS: ATTEND Nurse Practitioner Women's Health
DX: N98.9 Complication associated with artificial fertilization, unspecified (principal); Z79.890 Hormone replacement therapy
CPT/HCPCS: 36415; 82626; 82670; 84144; 84402; 84403; 85025

== ENCOUNTER → 2018-10-14 | Outpatient (CLI) | payer OTHER ==
[2017-10-24 08:30] VITALS: BP 105/57
[2018-10-14 12:08] LABS: FREE T4 0.77 ng/dL (0.76-1.46); THYROID STIM HORMONE (TSH) 1.585 uIU/mL (0.358-3.74)
== END | disposition home or self-care (01) ==
LOC: LAB 11:08
PROVIDERS: ATTEND Nurse Practitioner Women's Health
DX: E03.9 Hypothyroidism, unspecified (principal); F17.210 Nicotine dependence, cigarettes, uncomplicated
CPT/HCPCS: 36415; 84439; 84443; 84481

== ENCOUNTER → 2019-01-12 | Outpatient (CLI) | payer OTHER ==
[2017-10-24 08:30] VITALS: BP 105/57
--- NOTE | 2019-01-12 11:47 | RAD ---
Indication: Six-month follow-up bilateral breast lesions. TECHNIQUE: Grayscale and color Doppler images of the bilateral limited breasts. COMPARISON: 07/08/2018. FINDINGS: Right breast: Previously seen right breast lesion at 12:00 position is no longer visualized. The interrogated right upper breast demonstrate no cystic or solid lesions. Left breast: Redemonstrated is an oval-shaped hypoechoic mass at 2:00 position approximately 7 cm from the nipple measuring 0.7 x 0.3 x 0.7 cm, previously 0.7 x 0.3 x 0.6 cm which is wider than taller without internal vascularity. Redemonstrated is an oval-shaped mixed echogenicity lesion at 10:30 position approximately 6 cm from the nipple measuring 0.8 x 0.5 cm, previously 0.8 x 0.4 cm which is wider than taller without internal vascularity. Redemonstrated is an oval-shaped hypoechoic lesion at 9:30 in position approximately 3.5 cm from the nipple measuring 0.4 x 0.2 x 0.5 centers middle, previously 0.4 x 0.2 x 0.5 cm which is wider than taller. This is likely a focal ectasia of the duct. IMPRESSION: 1. Nonvisualization of previous is seen right breast lesion status post biopsy. No new right breast lesion seen. 2. Relatively stable 3 left breast lesions as described above 1 is likely a focal ductal ectasia and the 2 are likely minimally complicated cysts. Six-month ultrasound follow-up recommended. Electronically signed by: Benito Tavares DO (01/12/2019 11:44 AM) [facility]
== END | disposition home or self-care (01) ==
LOC: US 10:26
PROVIDERS: ATTEND Surgery
DX: N64.89 Other specified disorders of breast (principal)
CPT/HCPCS: 76641

== ENCOUNTER → 2019-04-01 | Outpatient (CLI) | payer OTHER ==
[2017-10-24 08:30] VITALS: BP 105/57
[2019-04-01 08:11] LABS: BASO # 0.1 x10^3/uL (0.0-0.2); BASO % 1 % (0-3); EOS # 0.2 x10^3/uL (0.0-0.7); EOS % 2 % (0-3); HEMATOCRIT 41.6 % (36.0-47.0); HEMOGLOBIN 14.2 g/dL (12.0-15.5); LYMPH % 24 % (24-48); MEAN CORPUSCULAR HEMOGLOBIN 29 pg (25-35); MEAN CORPUSCULAR HGB CONC 34 g/dL (31-37); MEAN CORPUSCULAR VOLUME 86 fL (79-100); MONO # 0.5 x10^3/uL (0.0-1.1); MONO % 7 % (0-9); NEUT # 5.5 x10^3uL (1.8-7.7); NEUT % 67 % (31-73); PLATELET COUNT 291 x10^3/uL (140-400); RED BLOOD COUNT 4.85 x10^6/uL (3.50-5.40); RED CELL DISTRIBUTION WIDTH 13.8 % (11.5-14.5); WHITE BLOOD COUNT 8.3 x10^3/uL (4.0-11.0)
[2019-04-01 08:31] LABS: ALBUMIN 3.3 g/dL (3.4-5.0); CALCIUM 8.9 mg/dL (8.5-10.1); CHOLESTEROL/HDL RATIO 3.8; GFR 58.9; POTASSIUM 3.9 mmol/L (3.5-5.1); TOTAL BILIRUBIN 0.2 mg/dL (0.2-1.0); TOTAL PROTEIN 6.6 g/dL (6.4-8.2)
[2019-04-01 08:39] LABS: FREE T4 0.69 ng/dL (0.76-1.46); THYROID STIM HORMONE (TSH) 0.919 uIU/mL (0.358-3.74)
[2019-04-02 02:10] LABS: LUTEINIZING HORMONE 12.1 mIU/mL (.); PROGESTERONE 2.5 ng/mL (.)
[2019-04-06 09:21] LABS: TESTOSTERONE FREE 0.05 ng/dL (0.10-0.85)
== END | disposition home or self-care (01) ==
LOC: LAB 07:41
PROVIDERS: ATTEND Physician Assistant Medical
DX: I10 Essential (primary) hypertension (principal); E78.5 Hyperlipidemia, unspecified; E03.9 Hypothyroidism, unspecified; Z79.890 Hormone replacement therapy
CPT/HCPCS: 36415; 80053; 80061; 82306; 82672; 83001; 83002; 84144; 84402; 84403; 84439; 84443; 84481; 85025

== ENCOUNTER 2019-04-28 07:00 | Day surgery (SDC) | payer OTHER ==
[~2019-04-28] VITALS: Ht 162.6 cm; Wt 107.0 kg
[~2019-04-28 07:00] MED LIST changes: +ALPR0.5T PO; +BACL10TA PO; +BUPIVACAINE MPF 0.5% 30 ML VIAL. ONE; +CHOL500016 PO; +DULO60CA6 PO; +HYDROmorphone 2 MG/ML VIAL IV PRN; +IV RINGERS,LACTATED 1000ML 1,000 ML IV SCH; +LIDOCAINE 1% 20 ML VIAL. ONE; +LIDOCAINE 1% PF 2 ML VIAL. ID PRN; +MORPHINE SULFATE 2 MG/ML VIAL. IV PRN; +OMEG1CAP27 PO; +ONDANSETRON PF 4 MG/2 ML VIAL. IV PRN; +PROCHLORPERAZINE 10 MG/2 ML VIAL. IV PRN; +PROG200C15 PO; +SUMA100T3 PO; +THYR30TA PO; +[UNRECOGNIZED DRUG - OTHER] INJ; +fentaNYL PF VIAL 100 MCG/2 ML VIAL IV PRN
[2019-04-28] MEDS ORDERED: LIDOCAINE 2% PF 5 ML VIAL. ONE (08:04)
[2019-04-28] MEDS ORDERED: DEXAMETHASONE SOD PHOS 4 MG/ML VIAL ONE (08:04)
[2019-04-28] MEDS ORDERED: PROPOFOL 20 ML IV ONE (08:04)
[2019-04-28] MEDS ORDERED: MIDAZOLAM HCL/PF 2 MG/2 ML VIAL. ONE (08:06)
[2019-04-28] MEDS ORDERED: fentaNYL PF VIAL 100 MCG/2 ML VIAL ONE ×2 (08:06→09:03)
[2019-04-28] MEDS ORDERED: ePHEDrine PF IN SALINE 50 MG/10 ML SYRINGE. IV ONE (08:16)
[2019-04-28] MEDS ORDERED: SEVOFLURANE 16 TO 30 MINUTES. IH ONE (08:32)
--- NOTE | 2019-04-28 08:52 | DISCH ---
DISCHARGE INSTRUCTIONS Condition on Discharge Condition on Discharge: Stable Activity After Discharge Activity Instructions for Disc: Resume previous activity, Activity as tolerated Other activity instructions: NWB Bathing Instructions: Shower-keep dressing dry, No Tub Bath until see Lifting Instructions after Dis: No heavy lifting Exercise Instruction after Dis: Walk 10 min, 3 x per day Driving Instructions after Dis: No driving for 2 weeks Weight Bearing Status after Di: Full weight bearing, Non weight bearing Diet after Discharge Diet after Discharge: Regular Wound Incision Care Wound/Incision Care: Keep wound/cast CDI, Keep wound elevated, Change dressing Other wound/incision instructi: ok to change dressing in 2 days Wound Care Equipment: Dressings Contacting the DRBrandi after DC Call your doctor for: Concerns you may have Follow-Up Follow up with: Kasie in 2 wks Treatment/Equipment after DC Adaptive Equipment Issued: None DANIEL VARGAS II, MD Apr 28, 2019 08:52
--- NOTE | 2019-04-28 08:56 | PDOC4 ---
Operative Note Operative Note Date of procedure: 04/28/2019 Surgeon: Andrea Vargas Preoperative diagnosis: Right foot plantar callosities Postoperative diagnosis: Same Procedure performed: Excision of right foot plantar callosities Anesthesia: Gen. Tourniquet time: 13 minutes Blood loss: 2 mL Complications: None Reason for procedure: Patient is a very pleasant female who has had painful lesions at the bottom of her foot interfering with her ability to ambulate and has tried and failed conservative therapies to lessen her pain. We had a discussion of the risks, benefits, and alternatives to this procedure in the operating room and she wished to proceed. Description of procedure: Patient was greeted in the preoperative holding area by myself for the correct extremity was verified and marked. She was taken back to the operative suite and her antibiotics were started as she was brought back. Once in the operating room, she was transferred gently supine to the operating table and secured to bed with all pressure points padded. She had successful induction of a general anesthetic. We had a large bump under her right hip. Nonsterile tourniquet was applied to her right thigh. We prepped and draped right lower extremity in our usual sterile fashion and conducted our standard preoperative timeout. Extremity was exsanguinated with an Esmarch and tourniquet insufflated to 250 mmHg. I then began the procedure by ellipsing out the plantar arch lesion and excised the skin. Electrocautery was used for hemostasis. This area was then irrigated out and the skin edges reapproximated with 2-0 nylon in a mattress fashion. I then directed my attention to the 2 lateral lesions, these were quite small. I used a rongeur to debride the thickened skin overlying this and identified the central area, I then used a curet to debride this. I repeated this maneuver at the second one as well. After this, a sterile soft bulky dressing was applied to her right foot and ankle after tourniquet a been let down. She was then awakened from anesthesia. She tolerated surgery well. No complications. At the conclusion of the surgery, she was transferred gently supine to the recovery room cart and taken to the PACU in a stable and extubated condition. No complications. Postoperative plan is discharge her home, nonweightbearing until wounds heal. I will see her back in my clinic in 2 weeks, sooner should a problem arise ANDREA VARGAS II, MD Apr 28, 2019 08:56
[2019-04-28] MEDS ORDERED: HYDR-3164 PO (08:59)
[2019-04-28] MEDS ORDERED: ceFAZolin 2GM PREMIX 2 GM/50 ML BAG IV ONE (09:00)
[2019-04-28 09:15] VITALS: BP 127/84
[2019-04-28] MEDS ORDERED: HYDROcodone/APAP 5/325MG 1 TAB TABLET PO ONE (09:15)
== END 2019-04-28 10:55 | disposition home or self-care (01) ==
LOC: SURG 07:00
PROVIDERS: ATTEND Orthopaedic Surgery Sports Medicine
DX: B07.0 Plantar wart (principal); L84 Corns and callosities; I10 Essential (primary) hypertension; E03.9 Hypothyroidism, unspecified; Z90.710 Acquired absence of both cervix and uterus; Z90.49 Acquired absence of other specified parts of digestive tract; Z98.890 Other specified postprocedural states; Z88.1 Allergy status to other antibiotic agents; Z88.8 Allergy status to other drugs, medicaments and biological substances
CPT/HCPCS: 17110; 97116; 97162; A7015; J0171; J0696; J1100; J2001; J2250; J2704; J3010; J3490

== ENCOUNTER → 2019-08-04 | Outpatient (CLI) | payer OTHER ==
[~2019-08-04] MED LIST changes: -BUPIVACAINE MPF 0.5% 30 ML VIAL. ONE; +HYDR-3164 PO; -HYDROmorphone 2 MG/ML VIAL IV PRN; -IV RINGERS,LACTATED 1000ML 1,000 ML IV SCH; -LIDOCAINE 1% 20 ML VIAL. ONE; -LIDOCAINE 1% PF 2 ML VIAL. ID PRN; -MORPHINE SULFATE 2 MG/ML VIAL. IV PRN; -ONDANSETRON PF 4 MG/2 ML VIAL. IV PRN; -PROCHLORPERAZINE 10 MG/2 ML VIAL. IV PRN; -fentaNYL PF VIAL 100 MCG/2 ML VIAL IV PRN
--- NOTE | 2019-08-04 14:31 | RAD ---
DATE: 08/04/2019 EXAM: MAMMO DANILO DELMY HANNAAT, BREAST LEFT HISTORY: History of benign right breast biopsy. History of left breast mass. COMPARISON: Ultrasound left breast 07/08/2018, bilateral mammogram 07/06/2018, 06/05/2017 This study was interpreted with the benefit of Computerized Aided Detection (CAD). Breast Density: FATTY The breast parenchyma is primarily fatty replaced. Breast parenchyma level density A. FINDINGS: Bilateral CC and MLO views of the breasts were performed. Bilateral breast tomosynthesis was performed in CC and MLO projections. Right breast: Biopsy clip is identified in the retroareolar right breast at site of prior benign breast biopsy. Previously seen mass has resolved. There are no suspicious microcalcifications, masses or areas of architectural distortion. Left breast: Stable circumscribed high density mass in the medial left breast at middle depth. There are no suspicious microcalcifications, masses or areas of architectural distortion. Targeted sonographic evaluation of the left breast was performed. At the 2:00 position, 7 cm from the nipple there is interval decrease in size of a previously seen circumscribed hypoechoic mass with parallel orientation and no definite posterior acoustic characteristics. This finding now measures 3.5 x 4.0 x 2.0 mm, previously measuring 7 x 4.5 x 2 mm. Findings favor benign etiology. Additionally, at the 9:30 position, 3.5 cm from the nipple there is a dilated duct which corresponds with previously suspected sonographic abnormality in same region. Stable appearance of a cluster of cysts or complex cyst at the 10:30 position, 6 cm from the nipple measuring 3 x 3 mm. Normal fatty lymph node is identified in the left axilla. IMPRESSION: 1. Benign findings in regards to bilateral mammogram. 2. Stable sonographic findings when compared to prior ultrasound from 07/08/2018 of the left breast. Findings favor benign etiology, as described in detail above. Recommend return to screening mammography. BI-RADS CATEGORY: 2 BENIGN FINDING(S) RECOMMENDED FOLLOW-UP: 12M 12 MONTH FOLLOW-UP PQRS compliance statement: Patient information was entered into a reminder system with a target due date 08/04/2020 for the next mammogram. Mammography is a sensitive method for finding small breast cancers, but it does not detect them all and is not a substitute for careful clinical examination. A negative mammogram does not negate a clinically suspicious finding and should not result in delay in biopsying a clinically suspicious abnormality. "Our facility is accredited by the [employer] Mammography Program."
== END | disposition home or self-care (01) ==
LOC: MAMMO 13:11
PROVIDERS: ATTEND Surgery
DX: N63.21 Unspecified lump in the left breast, upper outer quadrant (principal)
CPT/HCPCS: 76641; 77066; G0279; 77062

== ENCOUNTER → 2020-08-07 | Outpatient (CLI) | payer OTHER ==
[~2020-08-07] MED LIST changes: -MOXI3DRO2 OU; +MOXI3DRO22 OU
--- NOTE | 2020-08-07 13:58 | KCIC ---
Bone densitometry. Clinical history: Perimenopausal female with hypothyroidism for well woman exam. Lumbar spine: L1-L4. The technical acquisition is adequate. The bone mineral density across the aggregate of L1-L4 is 1.288 gm/cm2. This corresponds to a T-score of 2.2 which is consistent with normal bone mineral density. At this bone density level, fracture risk is normal. Hip: Left. The technical acquisition is adequate. The bone mineral density at the the left total femur is 1.19 for gm/cm2. This corresponds to a T-score of 2.1 which is consistent with normal bone mineral density. At this bone density level, fracture risk is normal. Impression: 1. Normal bone mineral density of the lumbar spine and left hip. Note: Definitions established by the World Health Organization: 1. Normal: T-score is -1.0 or above. 2. Osteopenia: T-score is between -1.0 and -2.5. 3. Osteoporosis: T-score is -2.5 or below. Electronically signed by: Jeremie Jasmine MD (08/07/2020 1:55 PM) [id number]
--- NOTE | 2020-08-07 16:17 | KCIC ---
Bilateral digital screening mammograms with 3-D tomosynthesis: Reason for examination: Routine screening. Comparison is made to previous studies dated back to 06/05/2017. Bilateral mammograms in CC and oblique projections were obtained with 2-D imaging and 3-D tomosynthesis imaging on a [employer] unit and reviewed on the workstation. Interpretation was made with the benefit of CAD. The skin and nipples show no abnormalities. No abnormal axillary lymph nodes are seen. The breast parenchyma is predominantly fatty. (Breast density: Category A.) There continue to be small nodular parenchymal densities in the upper inner quadrant anteriorly in the left breast which are stable. There is however a new nodule present anteriorly in the upper outer quadrant of the right breast at approximately the 9:30 position 5 cm from the nipple measuring 6 mm in size. Further evaluation with ultrasound is recommended. There are no other new dominant masses, suspicious calcifications or architectural distortion. Impression: Small 6 mm nodule anteriorly in the upper outer quadrant of the right breast at approximately the 9:30 position 5 cm from the nipple. Recommend further evaluation with ultrasound. No change in the small nodular densities in the left breast. BI-RAD Category 0: Incomplete. Needs additional imaging evaluation. "Our facility is accredited by the [employer] Mammography Program." This patient's information has been entered into a reminder system for the patient to be notified with the results of her examination and a target date for the next mammogram. Electronically signed by: Melissa Jones MD (08/07/2020 4:14 PM) [email or web address]
== END ==
LOC: KCIC DEXA 12:30
PROVIDERS: ATTEND Physician Assistant Medical
DX: Z00.00 Encounter for general adult medical examination without abnormal findings (principal); Z12.31 Encounter for screening mammogram for malignant neoplasm of breast; N64.89 Other specified disorders of breast; Z78.0 Asymptomatic menopausal state
CPT/HCPCS: 77063; 77067; 77080

== ENCOUNTER → 2020-08-11 | Outpatient (CLI) | payer OTHER ==
--- NOTE | 2020-08-11 15:32 | RAD ---
Examination: Limited right breast ultrasound INDICATION: Screening mammography recall for right breast nodule in the upper outer quadrant COMPARISON: 08/07/2020 bilateral mammogram TECHNIQUE: Grayscale and color Doppler imaging of the right breast and axilla in the area of mammographic interest was performed. FINDINGS: Targeted ultrasound of the upper-outer quadrant right breast from the 9:00 position through 12:00 position was performed targeting the 9:30 o'clock position 5 cm from the nipple in particular. Sonographic survey of the right axilla and of the subareolar breast was also performed. This revealed no sonographic correlate to the mammographic finding recalled from screening and no suspicious sonographic findings. A right axillary lymph node with near complete fatty replacement save for a mildly eccentric cortex that is still not thickened is seen, probably benign. IMPRESSION: Probably benign findings on ultrasound of the right breast. Recommend six-month follow-up right diagnostic breast ultrasound to include the axilla. BI-RADS Category 3 Probably benign findings Patient entered into a reminder system with target due date for next mammogram
== END ==
LOC: US 14:03
PROVIDERS: ATTEND Physician Assistant Medical
DX: R92.8 Other abnormal and inconclusive findings on diagnostic imaging of breast (principal)
CPT/HCPCS: 76641

== ENCOUNTER → 2021-06-08 | Outpatient (CLI) | payer OTHER ==
[2021-06-08 08:56] LABS: BASO # 0.1 x10^3/uL (0.0-0.2); BASO % 1 % (0-3); EOS # 0.5 x10^3/uL (0.0-0.7); EOS % 5 % (0-3); HEMATOCRIT 38.5 % (36.0-47.0); HEMOGLOBIN 13.4 g/dL (12.0-15.5); LYMPH # 1.6 x10^3/uL (1.0-4.8); LYMPH % 19 % (24-48); MEAN CORPUSCULAR HEMOGLOBIN 30 pg (25-35); MEAN CORPUSCULAR HGB CONC 35 g/dL (31-37); MEAN CORPUSCULAR VOLUME 87 fL (79-100); MONO # 0.6 x10^3/uL (0.0-1.1); MONO % 7 % (0-9); NEUT # 5.7 x10^3/uL (1.8-7.7); NEUT % 68 % (31-73); PLATELET COUNT 327 x10^3/uL (140-400); RED BLOOD COUNT 4.44 x10^6/uL (3.50-5.40); RED CELL DISTRIBUTION WIDTH 15.1 % (11.5-14.5); WHITE BLOOD COUNT 8.4 x10^3/uL (4.0-11.0)
[2021-06-08 08:57] LABS: BILIRUBIN,URINE NEGATIVE (NEG); CLARITY,URINE CLEAR; COLOR,URINE YELLOW; NITRITE,URINE NEGATIVE (NEG); PROTEIN,URINE NEGATIVE (NEG-TRACE); UROBILINOGEN,URINE 0.2 mg/dL (0.2 mg/dL)
[2021-06-08 09:05] LABS: BACTERIA,URINE FEW /HPF (0-FEW); RBC,URINE 0 /HPF (0-2); WBC,URINE RARE /HPF (0-4)
[2021-06-08 09:11] LABS: ALBUMIN 3.4 g/dL (3.4-5.0); ALBUMIN/GLOBULIN RATIO 0.9 (1.0-1.7); CHOLESTEROL/HDL RATIO 3.4; CREATININE 1.1 mg/dL (0.6-1.0); GFR 52.4; POTASSIUM 3.8 mmol/L (3.5-5.1); TOTAL BILIRUBIN 0.3 mg/dL (0.2-1.0)
[2021-06-08 09:21] LABS: FREE T4 0.85 ng/dL (0.76-1.46); THYROID STIM HORMONE (TSH) 0.988 uIU/mL (0.358-3.74)
== END ==
LOC: LAB 08:29
PROVIDERS: ATTEND Physician Assistant Medical
DX: Z01.419 Encounter for gynecological examination (general) (routine) without abnormal findings (principal); E78.5 Hyperlipidemia, unspecified; M79.7 Fibromyalgia; K21.9 Gastro-esophageal reflux disease without esophagitis; E03.9 Hypothyroidism, unspecified
CPT/HCPCS: 36415; 80053; 80061; 81001; 84436; 84439; 84443; 85025

== ENCOUNTER → 2021-08-13 | Outpatient (CLI) | payer OTHER ==
[~2021-08-13] MED LIST changes: -DULO60CA6 PO; +DULO60CA7 PO
--- NOTE | 2021-08-13 14:04 | RAD ---
PROCEDURE: MG BILAT SCREEN+DANILO HISTORY: The patient is 51 years old and is seen for Reason: FOLLOW UP EXAM / Spl. Instructions: / H istory: . COMPARISON: August 11, 2020 ultrasound and mammogram TECHNIQUE: CC and MLO views of both breasts were obtained. Images were processed by the [employer] computer-aided detection system. DENSITY: There are scattered fibroglandular densities. FINDINGS: Right breast: Focal asymmetry within the right retroareolar anterior depth not definitely seen previo usly measures 0.9 cm approximately 4.2 cm from the nipple. Spot compression views were performed. The asymmetry is less apparent on spot compression views. Left breast: No developing mass, suspicious calcifications or architectural distortion. IMPRESSION: Focal asymmetry within the right breast anterior depth less apparent on spot compression views, may represent overlapping fibroglandular tissue. Recommend 6 month right breast mammogram foll ow-up to confirm. Recommend annual screening mammograms per [employer] guidelines. Patient will be due in six months. BI-RADS category 3 Probably benign Our clinic nurse has been instructed to assist with communicating findings and recommendations to the patient's referring physician and in scheduling follow-up. Patient entered into a reminder system for annual screening mammogram. Electronically signed by: Anil Her DO (08/13/2021 2:01 PM) [email or web address]
== END ==
LOC: MAMMO 13:01
PROVIDERS: ATTEND Physician Assistant Medical
DX: Z12.31 Encounter for screening mammogram for malignant neoplasm of breast (principal)
CPT/HCPCS: 77063; 77067

== ENCOUNTER → 2021-08-17 | Outpatient (CLI) | payer OTHER ==
[2021-08-17 10:21] LABS: FREE T4 0.7 ng/dL (0.76-1.46)
[2021-08-18 04:10] LABS: ESTRADIOL LEVEL 42.9 pg/mL (.); PROGESTERONE 2.5 ng/mL (.)
== END ==
LOC: LAB 09:28
PROVIDERS: ATTEND Nurse Practitioner Women's Health
DX: N95.9 Unspecified menopausal and perimenopausal disorder (principal); E03.9 Hypothyroidism, unspecified; R53.83 Other fatigue; Z79.899 Other long term (current) drug therapy
CPT/HCPCS: 36415; 82627; 82670; 84144; 84402; 84403; 84439; 84481; 86769

== ENCOUNTER → 2021-09-28 | Day surgery (SDC) | payer OTHER ==
[~2021-09-28] VITALS: Ht 162.6 cm; Wt 106.8 kg
[~2021-09-28] MED LIST changes: +AMLO-186 PO; +IV RINGERS,LACTATED 1000ML 1,000 ML IV SCH; +LIDOCAINE 2% PF 5 ML VIAL. ONE; +OLME1TAB25 PO; +PROPOFOL 10 MG/ML (20ML) VIAL. IV ONE
[2021-09-28 06:14] VITALS: BP 134/73
[2021-09-28 07:58] VITALS: BP 116/65
--- NOTE | 2021-10-01 10:13 | HP ---
DATE OF SERVICE: 09/28/2021 ADMIT DATE: 09/28/2021 REFERRING PHYSICIAN: Chuyita Diane MD REASON: History of Dias's and colorectal screening. HISTORY OF PRESENT ILLNESS: A 51-year-old female with past medical history significant for hypertension as well as Dias's, hypothyroidism, seen for interval endoscopy. She is taking her PPI therapy with good control of her reflux. She has no dysphagia or odynophagia at this time. Weight and appetite are stable. Risk factors are significant for alcohol, nicotine and caffeine. Bowel habits have been regular without diarrhea or constipation. There has been no melena or hematochezia. Apparently, an uncle has passed from metastatic adenocarcinoma thought to be a colon primary. She is here for a screening colon. Last one was done over a decade ago, which was unrevealing at that time. PAST MEDICAL HISTORY: Hypertension, hypothyroidism, Dias's. ALLERGIES: CIPROFLOXACIN, TRIMETHOPRIM, SULFA. MEDICATIONS: Include Xanax, amlodipine, vitamin D, Cymbalta, Nexium, magnesium, Benicar, . FAMILY AND SOCIAL HISTORY: Significant for colon cancer with an uncle. PAST SURGICAL HISTORY: Appendectomy, cholecystectomy, hysterectomy, lysis of adhesions, C-sections. REVIEW OF SYSTEMS: Per records. PHYSICAL EXAMINATION: GENERAL: Reveals a well-nourished, well-developed female. VITAL SIGNS: Temperature is 97.1, pulse 70, respiratory rate 14. LUNGS: Clear. CARDIOVASCULAR: Reveals an S1, S2, without S3, S4 or appreciable murmur. ABDOMEN: Reveals soft abdomen, normal bowel sounds, without appreciable hepatosplenomegaly. EXTREMITIES: Reveals no cyanosis, clubbing or edema. IMPRESSION AND PLAN: 1. History of Dias's, on PPI therapy. EGD is recommended with possible biopsies to rule out dysplasia with surveillance. Risks and benefits discussed with the patient. She is willing to proceed. 2. Colorectal screening with a recent history of an uncle. Surveillance exam is recommended at this time. Risks and benefits were discussed. She is willing to proceed. TATI/MONIK DR: Adin TID: [id number] CC: BK ALMONTE, ____ ____
== END | disposition home or self-care (01) ==
LOC: SURG 05:51
PROVIDERS: ATTEND Internal Medicine Gastroenterology
DX: Z12.11 Encounter for screening for malignant neoplasm of colon (principal); K22.70 Barrett's esophagus without dysplasia; K21.00 Gastro-esophageal reflux disease with esophagitis, without bleeding; D17.5 Benign lipomatous neoplasm of intra-abdominal organs; K64.0 First degree hemorrhoids; K57.30 Diverticulosis of large intestine without perforation or abscess without bleeding; K63.89 Other specified diseases of intestine; K31.89 Other diseases of stomach and duodenum; I10 Essential (primary) hypertension; E03.9 Hypothyroidism, unspecified; E66.9 Obesity, unspecified; F41.9 Anxiety disorder, unspecified; F17.210 Nicotine dependence, cigarettes, uncomplicated; Z80.0 Family history of malignant neoplasm of digestive organs; Z90.710 Acquired absence of both cervix and uterus; Z90.49 Acquired absence of other specified parts of digestive tract; Z98.51 Tubal ligation status; Z98.890 Other specified postprocedural states; Z79.899 Other long term (current) drug therapy; Z72.89 Other problems related to lifestyle; Z88.1 Allergy status to other antibiotic agents; Z88.8 Allergy status to other drugs, medicaments and biological substances; Z20.822 Contact with and (suspected) exposure to COVID-19
CPT/HCPCS: 43239; 45378; 87426; 88305; J2704

== ENCOUNTER → 2021-10-01 | Outpatient (CLI) | payer OTHER ==
[2021-09-28 07:58] VITALS: BP 116/65
[~2021-10-01] MED LIST changes: -IV RINGERS,LACTATED 1000ML 1,000 ML IV SCH; -LIDOCAINE 2% PF 5 ML VIAL. ONE; -PROPOFOL 10 MG/ML (20ML) VIAL. IV ONE
[2021-10-01 16:10] LABS: FREE T4 0.78 ng/dL (0.76-1.46); THYROID STIM HORMONE (TSH) 0.281 uIU/mL (0.358-3.74)
== END ==
LOC: LAB 14:32
PROVIDERS: ATTEND Physician Assistant
DX: Z79.899 Other long term (current) drug therapy (principal)
CPT/HCPCS: 36415; 82607; 83735; 84439; 84443; 84480

== ENCOUNTER → 2021-10-01 | Outpatient (CLI) | payer OTHER ==
[2021-09-28 07:58] VITALS: BP 116/65
== END ==
LOC: LAB 14:29
PROVIDERS: ATTEND Nurse Practitioner Women's Health
DX: E03.9 Hypothyroidism, unspecified (principal); R53.83 Other fatigue
CPT/HCPCS: 36415; 84481

== ENCOUNTER → 2022-01-31 | Outpatient (CLI) | payer OTHER ==
[2021-09-28 07:58] VITALS: BP 116/65
--- NOTE | 2022-01-31 08:18 | RAD ---
EXAMINATION: MG DIGITAL UNILAT DIAGNOSTIC MAMMO WITH DANILO CLINICAL HISTORY: Prior breast asymmetry TECHNIQUE: Digital craniocaudal and mediolateral oblique views of the bilateral breasts obtained with 3-D tomosynthesis. COMPARISON: 08/13/2021, 08/07/2020, 08/04/2019, 07/15/2018, 07/06/2018 BREAST COMPOSITION: There are scattered areas of fibroglandular density. FINDINGS: No small asymmetry in the retroareolar right breast appears similar to slightly less dense compared t o the prior exam. No evidence of suspicious mass or calcifications. IMPRESSION: Probably benign small retroareolar asymmetry in the right breast, recommend bilateral mammogram in 6 months. BI-RADS ASSESSMENT: Category 3: Probably Benign RECOMMENDATION: Bilateral mammogram in 6 months. PQRS compliance statement - Patient information was entered into a reminder system with a target due date for the next mammogram. "Our facility is accredited by the [employer] Mammography Program." Electronically signed by: Colby Doyle DO (01/31/2022 8:16 AM) [email or web address]
== END ==
LOC: MAMMO 07:50
PROVIDERS: ATTEND Physician Assistant Medical
DX: Z09 Encounter for follow-up examination after completed treatment for conditions other than malignant neoplasm (principal)
CPT/HCPCS: 77065; G0279; 77061